=== PATIENT | female | born 1960 | race American Indian/Alaskan Native ===

== ENCOUNTER 2020-12-12 11:05 | Outpatient (CLI) | payer OTHER ==
--- NOTE | 2020-12-12 11:45 | XRay Report ---
RIGHT SHOULDER 3 VIEWS INDICATION: RT SHOULDER PAIN. COMPARISON: None. IMPRESSION: No acute osseous or soft tissue abnormality. Mild osteoarthritic changes are identifi ed. Signer Name: Nathan Shirley Jr, MD Signed: 12/12/2020 11:40 AM Workstation Name: [id number]
== END 2020-12-12 11:06 | disposition home or self-care (01) ==
LOC: XRAY 11:05
PROVIDERS: ATTEND Internal Medicine
DX: M19.011 Primary osteoarthritis, right shoulder (principal)